=== PATIENT | female | born 2000 | race Caucasian/White ===

== ENCOUNTER 2018-01-16 17:04 | Emergency (ER) | payer OTHER ==
[~2018-01-16] VITALS: Ht 157.5 cm; Wt 51.8 kg
[~2018-01-16 17:04] MED LIST: AMOXICILLIN500 M1 PO; MIRALAX255 GM PO; ZITHROMAX250 MG PO
[2018-01-16 17:55] LABS: APPEARANCE SL.HAZY ((CLEAR)); BILIRUBIN NEGATIVE; BLOOD NEGATIVE; COLOR YELLOW ((YELLOW)); GLUCOSE (STRIP) NEGATIVE; KETONES NEGATIVE; LEUKOCYTES SMALL; NITRITE NEGATIVE; PROTEIN (STRIP) 30; SPECIFIC GRAVITY 1.019 (1.000-1.030); UROBILINOGEN 0.2 MG/DL (0.2-1.0)
[2018-01-16 18:03] LABS: BACTERIA RARE /HPF; EPITHELIAL CELLS 2+ /HPF; MUCUS 2+ /LPF; UCUL ADDED? YES
[2018-01-16 18:03] LABS: HEMATOCRIT 39.3 % (36.0-46.0); HEMOGLOBIN 13.3 G/DL (11.9-15.5); MCH 27.8 PG (29.0-34.0); MCHC 33.8 G/DL (30.0-36.0); PLATELET COUNT 212 K/uL (156-360); RBC DIS.WIDTH-CV 12.2 % (11.8-14.6); RBC DIS.WIDTH-SD 37.1 % (39-53); RED BLOOD COUNT 4.79 M/uL (3.80-5.20); WHITE BLOOD COUNT 5.9 K/uL (4.1-10.2)
[2018-01-16 18:15] LABS: ALBUMIN 4.7 g/dL (3.2-4.8)
[2018-01-16 18:16] LABS: CHLORIDE 104 mEq/L (99-109); POTASSIUM 3.1 mEq/L (3.7-5.4); SODIUM 138 mEq/L (136-147)
[2018-01-16 18:18] LABS: GLUCOSE 125 mg/dL (70-99); TOTAL PROTEIN 7.6 g/dL (6.4-8.3)
[2018-01-16 18:20] LABS: TOTAL BILIRUBIN 0.5 mg/dL (0.0-1.0)
[2018-01-16 18:21] LABS: ALKALINE PHOSPHATASE 79 IU/L (3-129)
[2018-01-16 18:22] LABS: GFR ESTIMATE (CALCULATED) > 59 mL/min/
[2018-01-16 18:23] LABS: AST (GOT) 14 IU/L (2-34); UREA NITROGEN (BUN) 11 mg/dL (9-23)
[2018-01-16 18:24] LABS: ALT (GPT) 8 IU/L (3-49)
[2018-01-16 18:31] LABS: QUANTITATIVE HCG < 4.0 MIU/ML
[2018-01-16 19:12] LABS: SOURCE SWAB
[2018-01-16 19:59] VITALS: BP 127/94
== END 2018-01-16 19:59 | disposition home or self-care (01) ==
LOC: EME 17:04
PROVIDERS: Physician Assistant Medical
DX: N72 Inflammatory disease of cervix uteri (principal)
CPT/HCPCS: 80053; 81003; 84702; 85027; 87086; 87210; 87491; 87591; 99281; 99284; J0696